=== PATIENT | male | born 1940 | race Caucasian/White ===

== ENCOUNTER 2016-11-18 15:33 | Outpatient (CLI) | payer OTHER ==
[2015-11-07 22:55] VITALS: BP 97/61
--- NOTE | 2016-11-18 16:03 | Diagnostic Imaging Report ---
SHARRI LUONG [facility] [id number] [facility] [address] [id number] Report Submission Date: Nov 18, 2016 4:02:53 PM CDT Patient Study Name: BONNIE WISEMAN Date: Nov 18, 2016 3:42:59 PM CDT Modality Type: CR Gender: M Description: LOWER EXTREMITY : 44 Institution: [facility] Physician: SHARRI LUONG Examination: Plain film knee History: Knee discomfort Findings: 3 views of the knee demonstrates tibial spine medial and lateral and patellar spurring. Mild medial joint space narrowing. No fracture. No dislocation. No joint effusion. No soft tissue irregularity. Impression: Degenerative changes. No fracture. Electronically signed on Nov 18, 2016 4:02:53 PM CDT by: Tyrell CHATMAN
== END 2016-11-18 15:44 ==
LOC: RAD 15:33
PROVIDERS: ATTEND Family Medicine
DX: M25.561 Pain in right knee (principal)
CPT/HCPCS: 73562

== ENCOUNTER 2016-12-06 08:02 | Outpatient (CLI) | payer OTHER ==
[2015-11-07 22:55] VITALS: BP 97/61
--- NOTE | 2016-12-06 14:43 | Diagnostic Imaging Report ---
[facility] [address] [facility] [address] [place], [place]. [address] Report Submission Date: Dec 06, 2016 12:19:20 PM CDT Patient Study Name: BONNIE WISEMAN Date: Dec 06, 2016 8:16:38 AM CDT Modality Type: MR Gender: M Description: MRI LOW EXT JNT W/O CONTRAST : 44 Institution: [facility] Physician: SHARRI LUONG - OP Examination: MR knee History: Knee discomfort Comparison exams: None provided Technique: MRI knee protocol Findings: Complex linear signal involving the body and posterior horn of the medial meniscus. Lateral meniscus appears to be intact. Diffuse thickening and increased signal involving the anterior cruciate ligament with only a few fibers identified traversing from the distal femur and proximal tibia. Posterior should ligament is intact. Bowing and thickening of the medial collateral ligament. No disruption. Lateral collateral ligament is within normal limits. 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 Lesser involvement of the lateral femorotibial articulation. Moderate size joint effusion. Small to moderate size wilson cyst with debris. Anterior soft tissue edematous changes. Impression: Complex medial meniscal tear. Significant internal tearing involving the anterior cruciate ligament. 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 Wilson cyst with debris. Joint effusion Electronically signed on Dec 06, 2016 12:19:20 PM CDT by: Tyrell CHATMAN
== END 2016-12-06 08:03 ==
LOC: RAD 08:02
PROVIDERS: ATTEND Family Medicine
DX: M25.561 Pain in right knee (principal)
CPT/HCPCS: 73721

== ENCOUNTER 2017-02-11 09:28 | Outpatient (CLI) | payer OTHER ==
[2015-11-07 22:55] VITALS: BP 97/61
[2017-02-11 10:20] LABS: eGFR (African) 55; eGFR (Non-African) 45
== END 2017-02-11 09:30 ==
LOC: LAB 09:28
PROVIDERS: ATTEND Family Medicine
DX: E11.9 Type 2 diabetes mellitus without complications (principal); I10 Essential (primary) hypertension
CPT/HCPCS: 36415; 80053; 83036

== ENCOUNTER 2017-09-09 08:35 | Outpatient (CLI) | payer OTHER ==
[2015-11-07 22:55] VITALS: BP 97/61
[2017-09-09 10:48] LABS: eGFR (African) 59; eGFR (Non-African) 49
== END 2017-09-09 08:36 ==
LOC: LAB 08:35
PROVIDERS: ATTEND Family Medicine
DX: E11.9 Type 2 diabetes mellitus without complications (principal); I10 Essential (primary) hypertension
CPT/HCPCS: 36415; 80053; 80061; 82043; 83036

== ENCOUNTER 2018-03-02 09:05 | Outpatient (CLI) | payer OTHER ==
[2015-11-07 22:55] VITALS: BP 97/61
[2018-03-02 10:00] LABS: eGFR (Non-African) 39
== END 2018-03-02 09:06 ==
LOC: LAB 09:05
PROVIDERS: ATTEND Family Medicine
DX: E11.9 Type 2 diabetes mellitus without complications (principal)
CPT/HCPCS: 36415; 80053; 83036

== ENCOUNTER 2019-02-09 09:21 | Outpatient (CLI) | payer OTHER ==
[2015-11-07 22:55] VITALS: BP 97/61
[2019-02-09 09:54] LABS: A1C 6.1 % (<5.7)
[2019-02-09 10:14] LABS: eGFR (Non-African) 37
[2019-02-09 10:15] LABS: HDL 31 mg/dL (>40)
== END 2019-02-09 09:23 ==
LOC: LAB 09:21
PROVIDERS: ATTEND Family Medicine
DX: E11.9 Type 2 diabetes mellitus without complications (principal)
CPT/HCPCS: 36415; 80053; 80061; 83036